=== PATIENT | male | born 1995 | race Two or more races ===

== ENCOUNTER 2017-02-27 10:42 | Emergency (ER) | payer SELFPAY ==
[2017-02-27 10:53] VITALS: BP 134/76
--- NOTE | 2017-02-27 12:45 | RAD ---
Testicular ultrasound Indication: Complaining of small lump on the top of the right testicle Technique: Grayscale, color Doppler and spectral waveform ultrasound images of the chest is obtained. Comparison: None Findings: Right testicle: The right testicle measures 4.3 x 3.1 x 2.2 cm with multiple punctate calcifications without focal lesion. The right epididymal head measures 0.8 cm and is within normal limits. The right testicle demonstrates evidence of blood flow on color Doppler and spectral waveform images. There is a 1.0 x 1.0 x 1.0 cm anechoic cyst adjacent to the epididymis. Left testicle: The left testicle measures 4.3 x 2.9 x 2.1 cm with multiple punctate calcifications without focal lesion. The epididymal head measures 0.9 cm and is within normal limits. Evidence of blood flow seen on color Doppler and spectral waveform. No hydrocele. Impression: 1. Bilateral testicular microlithiasis. No soft tissue mass. Yearly physical exam recommended. 2. Small simple cyst adjacent to right epididymal head (1 cm).
--- NOTE | 2017-02-27 13:10 | PHYS DOC ---
Past Medical History Past Medical History: No Pertinent History Past Surgical History: No Surgical History Alcohol Use: None Drug Use: None Adult General Chief Complaint Chief Complaint: TESTICULAR PAIN OR INJURY HPI HPI Patient is a 21 year old male who presents with complaint of discomfort related to a right testicular lesion. The patient states that he has noticed a small lump on his right testicle which has been present over the past 5 years. Patient states that he has not noticed any change in this lump, however over the past few days he has been experiencing more discomfort associated with it. The patient otherwise denies any other symptoms. The patient has had no previous medical workup to assess the etiology of the lump. She is not on any medications at this time and does not follow with her primary physician. Patient denies any previous surgeries. Due to the increasing discomfort, the patient came to the emergency department to have the lesion evaluated. Review of Systems Review of Systems Constitutional: Denies fever or chills [] Eyes: Denies change in visual acuity, redness, or eye pain [] HENT: Denies nasal congestion or sore throat [] Respiratory: Denies cough or shortness of breath [] Cardiovascular: Denies chest pain or edema [] GI: Denies abdominal pain, nausea, vomiting, bloody stools or diarrhea [] : Testicular mass, denies dysuria or hematuria [] Musculoskeletal: Denies back pain or joint pain [] Integument: Denies rash or skin lesions [] Neurologic: Denies headache, focal weakness or sensory changes [] Allergies Allergies Allergies Coded Allergies Type Severity Reaction Last Updated Verified No Known Allergies Allergy Unknown 11/09/15 Yes Physical Exam Physical Exam Constitutional: Alert, afebrile, no acute distress. [] HENT: Normocephalic, atraumatic, bilateral external ears normal, oropharynx moist, no oral exudates, nose normal. [] Eyes: PERRLA, EOMI, conjunctiva normal, no discharge. [] Neck: Normal range of motion, no tenderness, supple, no stridor. [] Cardiovascular:Heart rate regular rhythm, no murmur [] Lungs & Thorax: Bilateral breath sounds clear to auscultation [] Abdomen: Bowel sounds normal, soft, no tenderness, no masses, no pulsatile masses. : No scrotal swelling or edema, nodular palpated adjacent to right superior area of testicle, no inguinal masses nontender to palpation. [] Skin: Warm, dry, no erythema, no rash. [] Back: No tenderness, no CVA tenderness. [] Extremities: No tenderness, no cyanosis, no clubbing, ROM intact, no edema. [] Neurologic: Alert and oriented X 3, normal motor function, normal sensory function, no focal deficits noted. [] Current Patient Data Vital Signs Vital Signs Date Time Temp Pulse Resp B/P (MAP) Pulse Ox O2 Delivery O2 Flow Rate FiO2 02/27/17 10:53 97.8 97 16 134/76 (95) 99 Room Air 97.8 EKG EKG Not performed [] Radiology/Procedures Radiology/Procedures [facility] [address] [place], [place] [id number] IMAGING REPORT Signed PATIENT: EDGAR RAMIREZ ACCOUNT: [id number] : 1995 LOCATION: ER AGE: 21 SEX: M EXAM STATUS: REG ER ORD. PHYSICIAN: MARY AUSTIN MD REASON: mass on right testicle PROCEDURE: TESTICULAR/SCROTUM Testicular ultrasound Indication: Complaining of small lump on the top of the right testicle Technique: Grayscale, color Doppler and spectral waveform ultrasound images of the chest is obtained. Comparison: None Findings: Right testicle: The right testicle measures 4.3 x 3.1 x 2.2 cm with multiple punctate calcifications without focal lesion. The right epididymal head measures 0.8 cm and is within normal limits. The right testicle demonstrates evidence of blood flow on color Doppler and spectral waveform images. There is a 1.0 x 1.0 x 1.0 cm anechoic cyst adjacent to the epididymis. Left testicle: The left testicle measures 4.3 x 2.9 x 2.1 cm with multiple punctate calcifications without focal lesion. The epididymal head measures 0.9 cm and is within normal limits. Evidence of blood flow seen on color Doppler and spectral waveform. No hydrocele. Impression: 1. Bilateral testicular microlithiasis. No soft tissue mass. Yearly physical exam recommended. 2. Small simple cyst adjacent to right epididymal head (1 cm). DICTATED and SIGNED BY: MALIHA ZENG DO DATE: 02/27/17 9545 CC: MARY AUSTIN MD; NO PCP ~ [] Course & Med Decision Making Course & Med Decision Making Pertinent Labs and Imaging studies reviewed. (See chart for details) Patient's lesion is consistent with an epididymal cyst. The patient however was also found to have findings of microlithiasis. I spoke with patient regarding this finding and stress the need for continued outpatient evaluation and follow- up with a primary physician. The patient was provided with a brochure for the [facility] and advised to schedule an appointment to establish primary care. Recommended use of Tylenol and ibuprofen as needed for discomfort. Advised return emergency department for any worsening symptoms. Patient voiced understanding and in agreement with treatment plan. Dragon Disclaimer Dragon Disclaimer This electronic medical record was generated, in whole or in part, using a voice recognition dictation system. Departure Departure Impression: Primary Impression: Epididymal cyst Additional Impression: Testicular microlithiasis Disposition: HOME, SELF-CARE Condition: STABLE Referrals: NO PCP (PCP) Patient Instructions: Testicular Problems and Self-Exam Additional Instructions: Your ultrasound found evidence of a cyst on your right testicle which is consistent with the lump that you are feeling. This is filled with fluid and will likely need no immediate intervention. You were also found to have evidence of microlithiasis, an abnormal finding which will need routine follow- up with your primary doctor to evaluate for any changes related to your testicles as this has been found in some patients who have developed testicular cancer. It is recommended that you have a testicular exam by a medical professional done yearly. Your ultrasound however does not show any evidence of a mass. Follow-up with the [facility] family practice clinic to establish primary care. Return to the emergency department for any worsening or severe symptoms. Problem Qualifiers MARY AUSTIN MD Feb 27, 2017 13:10
== END 2017-02-27 13:54 | disposition home or self-care (01) ==
LOC: ER 10:42
DX: N50.3 Cyst of epididymis (principal); N50.89 Other specified disorders of the male genital organs
CPT/HCPCS: 76870; 99284-25